=== PATIENT | female | born 1955 | race Caucasian/White ===

== ENCOUNTER 2017-05-05 11:41 | Emergency (ER) | payer OTHER ==
[2017-05-05 12:23] VITALS: BP 108/71; PULSE 81; RESP 20; TEMP 98.6; O2SAT 98
--- NOTE | 2017-05-05 13:50 | C.PDOC ---
History Of Present Illness 61 y/o female with no sig pmh c/o cough with clear sputum, chest pain and back pain with breathing, not short of breath, with body aches since yesterday. no fevers or chills. Time Seen by Provider: 05/05/17 12:49 Chief Complaint (Nursing): Cough, Cold, Congestion History Per: Patient History/Exam Limitations: no limitations Onset/Duration Of Symptoms: Days (2) Current Symptoms Are (Timing): Still Present Location Of Pain: Other (pleuritic cp) Sick Contacts (Context): None Associated Symptoms: Cough, Sputum, Myalgias. denies: Fever, Chills, Sore Throat, Vomiting, Diarrhea Ear Symptoms: Bilateral: None Past Medical History Reviewed: Historical Data, Nursing Documentation, Vital Signs Vital Signs: Last Vital Signs Temp 98.6 F 05/05/17 12:20 Pulse 81 05/05/17 12:20 Resp 20 05/05/17 12:20 BP 108/71 05/05/17 12:20 Pulse Ox 98 05/05/17 13:58 - Medical History PMH: No Chronic Diseases - [facility] INJECT/INFUSE NEC (03/17/13) Family History: States: Unknown Family Hx - Social History Hx Tobacco Use: No Hx Alcohol Use: No Hx Substance Use: No - Immunization History Hx Influenza Vaccination: No ED Course And Treatment O2 Sat by Pulse Oximetry: 98 Medical Decision Making Medical Decision Makin pm pt reports dec pain in cvhest and back with breathing,. will d/c with zpak and motrin. f/u clinic Disposition Counseled Patient/Family Regarding: Diagnosis, Need For Followup, Rx Given - Disposition Referrals: [facility] [Outside] Disposition: HOME/ ROUTINE Disposition Time: 14:46 Condition: IMPROVED Additional Instructions: Por favor tome antibiticos e ibuprofeno segn lo recetado. Dinorah un seguimiento en la clnica mdica o con ontiveros mdico en unos reed. Salima ms lquidos, mantiene la flema delgada y ms fcil de expulsar. Evite productos lcteos, hace que la flema espesa. Regrese a la jenni de emergencias por cualquier sntoma peor. Please take antibiotics and ibuprofen as prescribed. Follow up in medical clinic or with your doctor in a few days. Drink more fluids- keeps phlegm thin and easier to cough up. Avoid dairy, makes phlegm thick. Return to ER for any worse symptoms. Prescriptions: Azithromycin [Z-Atul] 250 mg PO DAILY #6 tab Ibuprofen [Motrin] 600 mg PO TID #30 tab Instructions: Upper Respiratory Infection (ED) Forms: Gen Discharge Inst Slovenian, [facility] (Slovenian) - Clinical Impression Clinical Impression: Bronchitis
== END 2017-05-05 15:09 | disposition home or self-care (01) ==
LOC: C.ER 11:41
DX: J40 Bronchitis, not specified as acute or chronic (principal)